=== PATIENT | female | born 1960 | race Caucasian/White ===

== ENCOUNTER 2017-07-01 17:20 | Observation (INO) | payer SELFPAY ==
[2017-07-01 18:00] LABS: #Basophils 0.1 thou/uL (0.0-0.2); #Eosinphils 0.2 thou/uL (0.0-0.7); #Lymphocytes 2.9 thou/uL (1.20-3.40); #Monocytes 0.5 thou/uL (0.11-0.59); #Neutrophils 4.5 thou/uL (1.40-6.50); %Basophils 1.5 % (0.0-1.0); %Eosinophils 2.2 % (0.0-10.0); %Monocytes 6.6 % (0.0-10.0); Hematocrit 42.2 % (36.0-47.0); Mean Platelet Volume 8.9 fL (7.4-10.4); Red Blood Cell (RBC) Count 4.41 mill/uL (4.20-5.40); White Blood Cell (WBC) Count 8.2 thou/uL (4.8-10.8)
[2017-07-01 18:12] LABS: ALT (SGPT) 19 U/L (8-55); AST (SGOT) 20 U/L (5-34); Alkaline Phosphatase 107 U/L (40-150); Anion Gap 16 mmol/L (10-20); BUN (Urea Nitrogen) 6 mg/dL (9.8-20.1); Bilirubin, Total 0.3 mg/dL (0.2-1.2); CK (CPK) 62 U/L (29-168); Calc. Creatinine Clearance 0 mL/min (70-130); Carbon Dioxide 24 mmol/L (22-29); Chloride 98 mmol/L (98-107); Estimated GFR-MDRD Greater than 90; Globulin 3.1 g/dL (2.4-3.5); Protein, Total 7.4 g/dL (6.0-8.3)
[2017-07-01 18:13] LABS: Troponin I Less than 0.010 ng/mL (< 0.028)
[2017-07-01] MEDS ORDERED: Nitroglycerin 2% Ointment 1 INCH/1 GM Packet ONE (18:28)
--- NOTE | 2017-07-01 18:38 | RAD ---
CHEST TWO VIEW 07/01/17 HISTORY: Emergency exam. COMPARISON: None. FINDINGS: Lungs are clear. No pneumothorax or effusion. The cardiac silhouette and mediastinal contours are w ithin normal limits. IMPRESSION: No acute intrathoracic abnormality. POS: MICKH
[2017-07-01 21:11] VITALS: BMI 25.3
[2017-07-01 21:49] LABS: Troponin I Less than 0.010 ng/mL (< 0.028)
[2017-07-01] MEDS ORDERED: hydrALAZINE 20 MG/ML VIAL SLOW IVP PRN (23:24)
[2017-07-01] MEDS: Nitroglycerin 2% Ointment 1 INCH/1 GM Packet TOP SCH (23:32)
[2017-07-02 00:09] LABS: Troponin I Less than 0.010 ng/mL (< 0.028)
[2017-07-02 04:32] LABS: #Basophils 0.1 thou/uL (0.0-0.2); #Eosinphils 0.2 thou/uL (0.0-0.7); #Lymphocytes 2.8 thou/uL (1.20-3.40); #Monocytes 0.6 thou/uL (0.11-0.59); #Neutrophils 4.1 thou/uL (1.40-6.50); %Basophils 0.9 % (0.0-1.0); %Eosinophils 2.9 % (0.0-10.0); %Lymphocytes 35.8 % (21.0-51.0); %Monocytes 7.6 % (0.0-10.0); Hematocrit 39.7 % (36.0-47.0); Mean Platelet Volume 8.1 fL (7.4-10.4); Red Blood Cell (RBC) Count 4.05 mill/uL (4.20-5.40); White Blood Cell (WBC) Count 7.7 thou/uL (4.8-10.8)
[2017-07-02 04:35] LABS: Anion Gap 10 mmol/L (10-20); BUN (Urea Nitrogen) 10 mg/dL (9.8-20.1); Calc. Creatinine Clearance 105 mL/min (70-130); Calcium 9.3 mg/dL (7.8-10.44); Carbon Dioxide 27 mmol/L (22-29); Chloride 103 mmol/L (98-107); Estimated GFR-MDRD Greater than 90; Magnesium 2.1 mg/dL (1.6-2.6); Phosphorus 3.3 mg/dL (2.3-4.7)
[2017-07-02 04:54] VITALS: TEMP 98.1
--- NOTE | 2017-07-02 06:57 | HP-2 ---
CODE STATUS: FULL. PRIMARY CARE PHYSICIAN: Sera russell. ATTENDING: Dr. Joseph. PGY-1: Dr. Calixto. CHIEF COMPLAINT: Chest pain. HISTORY OF PRESENT ILLNESS: This is a 56-year-old female who presents with a 1 day history of substernal chest pain. She states she has had breast pain in her right side for 3 weeks and is being followed as an outpatient for that. She said that the pain changed today and it was in the center of her chest. She notes no nausea, vomiting or diarrhea. She denies diaphoresis, radiation of the pain or change in pain. She does note that nitro that she got helped the pain. She has no other complaints at this time. PAST MEDICAL HISTORY: Significant for hypertension. PAST SURGICAL HISTORY: Significant for hysterectomy. ALLERGIES: None. MEDICATIONS: Lisinopril/HCTZ 10/12.5 mg. FAMILY HISTORY: Noncontributory. SOCIAL HISTORY: She does admit to an [id number] history and currently smoking half a pack per day. Denies any alcohol or drug use. REVIEW OF SYSTEMS: General: She denies any fevers, chills, weight changes, night sweats, or fatigue. Eyes: Denies any vision change or eye pain. ENT: She does admit to nasal congestion. Denies any rhinorrhea or sore throat. Respiratory: She admits to cough and congestion. No shortness of breath. Cardiovascular: She does admit to chest pain. She denies any palpitations, edema, orthopnea. Gastrointestinal: Denies any nausea, vomiting, diarrhea, constipation, abdominal pain, gastrointestinal bleeding. Genitourinary: She denies any incontinence, dysuria. Skin: She denies any rashes, lesions, jaundice, itching. She does admit to breast pain on her right. Musculoskeletal : She denies any pain, tenderness, stiffness, or swelling. Neurologic: She denies any weakness, numbness, syncope or seizures. Psychiatric: She denies anxiety or depression. PHYSICAL EXAMINATION: VITAL SIGNS: Blood pressure is 181/84, pulse 76, respiration 16, temperature max 98.8, pulse ox 98% on room air, current weight 63 kilograms. GENERAL: She is alert and oriented x4. Appropriately interactive. EYES: PERRLA. Conjunctivae within normal limits. ENT: Nasal mucosa and oropharynx within normal limits. NECK: Supple, no lymphadenopathy, no thyromegaly, no bruit. CARDIOVASCULAR: Regular rate and rhythm, no murmurs, no gallops. Radial and pedal pulses equal bilaterally. RESPIRATORY: Normal effort, no retractions. She does have wheezing present bilaterally. SKIN: Warm and dry. No cyanosis. No lesions. ABDOMEN: Soft. No tenderness to palpation. Bowel sounds are present x4. No masses or distention. EXTREMITIES: No clubbing, cyanosis or edema. MUSCULOSKELETAL: Structure, tone, muscle strength and range of motion are within normal limits. NEUROLOGIC: No focal neurologic deficits. Sensation within normal limits. Cranial nerves II through XII grossly intact. GCS was 15. PSYCHIATRIC: She was appropriate. LABORATORY DATA: White blood cell count 8.2, platelet count 266, hemoglobin 14.3, hematocrit 42.2. CK of 62, CK-MB 0.9. Sodium 134, potassium 4.0, chloride 98, bicarbonate 24, BUN 6, creatinine 0.66, glucose 107. Troponins were less than 0.01 x2. Calcium was 10.0, total protein 7.4, albumin 4.3, total bilirubin 0.3, AST 20, ALT 19, alkaline phosphatase 107. D-dimer 0.37. X-RAY FINDINGS: Chest x-ray showed nothing acute. ASSESSMENT AND PLAN: A 56-year-old female with past medical history of hypertension who presents with: 1. Atypical chest pain. We will trend her troponins, we will get EKG, repeat stress test in the a.m., BNP, TSH, magnesium, and phosphatase. We will give her nitro, ASA. She had a heart score of 4. 2. Hypertension. Continue her home medications, likely need an increase in her dosage. 3. Tobacco abuse. She was counseled on quitting. 4. Breast pain. We will recommend outpatient follow up from there. Already has Mammogram order in place. Disposition and length of hospital stay will be observation in 1 midnight. Symptomatic medications will be provided. History and physical exam as well as management has been discussed with Dr. Joseph. SHANTE
--- NOTE | 2017-07-02 07:34 | PDOC.FM ---
- Subjective Subjective: Denies any chest pain or SOB. Still reporting pain in R. breast. Pain being controlled. Denies any acute events overnight. no fevers or chills. Denies any other problems at this time. - Objective MAR Reviewed: Yes Vital Signs & Weight: Vital Signs (12 hours) Temp Pulse Resp BP Pulse Ox 07/02/17 04:11 98.1 F 60 18 115/65 95 07/01/17 23:02 121/69 07/01/17 22:57 99 07/01/17 21:14 98.8 F 76 16 07/01/17 20:34 98.8 F 76 16 181/84 H 99 Weight Weight 62.868 kg I&O: 07/01/17 07/02/17 07/03/17 06:59 06:59 06:59 Intake Total 200 Output Total 350 Balance -150 Result Diagrams: 07/02/17 04:15 07/02/17 04:15 Radiology Reviewed by me: Yes (No acute intrathoracic abnormality ) <Can Carlos - Last Filed: 07/02/17 07:32> - Objective Vital Signs & Weight: Vital Signs (12 hours) Temp Pulse Resp BP BP Pulse Ox 07/02/17 07:51 98.1 F 60 18 07/02/17 07:41 98.6 F 68 16 136/71 97 07/02/17 04:11 98.1 F 60 18 115/65 95 07/01/17 23:02 121/69 07/01/17 22:57 99 Weight Weight 62.868 kg I&O: 07/01/17 07/02/17 07/03/17 06:59 06:59 06:59 Intake Total 200 Output Total 350 Balance -150 Result Diagrams: 07/02/17 04:15 07/02/17 04:15 <Mikel Joseph - Last Filed: 07/02/17 10:49> Phys Exam - Physical Examination HEENT: PERRLA, moist MMs Neck: no nodes, supple, full ROM Respiratory: no wheezing, no rales, no rhonchi, clear to auscultation bilateral Cardiovascular: RRR, no significant murmur, no rub Gastrointestinal: soft, non-tender, no distention, positive bowel sounds Musculoskeletal: no edema, pulses present Lymphatic: no nodes Psychiatric: normal affect, A&O x 3 Skin: no rash, normal turgor <Can Carlos - Last Filed: 07/02/17 07:32> Dx/Plan (1) Atypical chest pain Code(s): R07.89 - OTHER CHEST PAIN Status: Acute (2) Hypertension Code(s): I10 - ESSENTIAL (PRIMARY) HYPERTENSION Status: Acute (3) Tobacco abuse Code(s): Z72.0 - TOBACCO USE Status: Acute (4) Breast pain Status: Acute - Plan Plan: Atypical Chest Pain -Troponins trended x3 are negative. -TSH negative -EKG shows no acute changes -Will get a stress test this morning. NPO at midnight HTN -BP stable this morning -Continue home meds -Will continue to monitor Tobacco abuse -counseled on quitting Breast Pain -No breast abnormality noted on exam -Has mammogram [facility] outpatient -Recommend outpatient follow up. <Can Carlos - Last Filed: 07/02/17 07:32> Attending Addendum - Attending Addendum I personally evaluated the patient and discussed the management with Dr. Carlos. I agree with the History, Examination, Assessment and Plan documented above with any addition or exceptions noted below. Patient with atypical chest pain and family history of early CAD presented for workup. She has negative enzymes and had normal exercise stress test. She will discharged today with outpatient follow up for further risk factor modification to decrease her risk of CAD. Sterling symptoms related to pleuritic pain and MSK pain as she has cough for last few days. <Mikel Joseph - Last Filed: 07/02/17 10:49>
--- NOTE | 2017-07-02 07:36 | PDOC.EVN ---
Attending Addendum - Attending Addendum I personally evaluated the patient and discussed the management with Dr. Calixto. I agree with the History, Examination, Assessment and Plan documented in his H& P with any addition or exceptions noted below. Patient with atypical chest pain and family history of CAD and cardiac admitted to obs for further cardiac evaluation. Will trend trops, risk stratify , and stress in AM.
[2017-07-02 08:16] VITALS: BP 136/71
[2017-07-02] MEDS ORDERED: Lisinopril/Hydrochlorothiazide 10 mg/12.5 mg Tablet PO SCH (09:00)
[2017-07-02] MEDS ORDERED: FLU VACC QS2017-18 36 mo. & older 0.5 ML SYRINGE IM ONE (09:00)
[2017-07-02] MEDS ORDERED: Aspirin 325 MG TAB PO SCH (09:00)
--- NOTE | 2017-07-03 13:55 | DIS-2 ---
DATE OF ADMISSION: 07/01/2017 DATE OF DISCHARGE: 07/02/2017 CONSULTS: None. PROCEDURE: An exercise stress test, which was normal. PRIMARY DISCHARGE DIAGNOSES: 1. Atypical chest pain. 2. Breast pain. SECONDARY DIAGNOSES: Hypertension and tobacco abuse. DISCHARGE MEDICATIONS: Lisinopril/hydrochlorothiazide 10 mg/12.5 mg 1 tab daily. HISTORY OF PRESENT ILLNESS AND BRIEF HOSPITAL COURSE: This is a 56-year-old female who had a 1 day h istory of substernal chest pain. States she has had breast pain in the right side for 3 weeks and mehta s a mammogram and ultrasound scheduled for that. She also reports having cold and cough for the last week and says she has been coughing a lot. Denies any nausea, vomiting or diarrhea. At the time wh en she came in, she got a nitro and said it helped with the chest pain. Pain was likely either due t o pleuritic chest pain from coughing and possibly cardiac. At this time, admitted to tele. No abnor mality was seen on the EKG. We got an exercise stress test the next day, which was read as normal. We trended her troponins and yhey were negative x2, less than 0.01. Her BNP was normal without a fas ting lipid panel in which LDL was 118, HDL was 64, and her heart disease risk rtdio was 1.2. We chec ked her thyroid, which was normal . After stress test was normal, nothing showed up on the hear t monitor. We talked to patient and patient agreed that likely pain was due to coughing. She did mehta ve pain to tenderness when we palpated the chest as well, so at this time we will discharge to home. DISPOSITION: Stable. DISCHARGE INSTRUCTIONS: 1. Location: Home. 2. Activities: Activity as tolerated. 3. Diet: Regular diet. 4. Followup: We will have her schedule followup appointment with her primary care doctor and have a hospital visit in 2 weeks.
--- NOTE | 2017-07-04 07:35 | EKG ---
Test Reason : ROUTINE Blood Pressure : / mmHG Vent. Rate : 070 BPM Atrial Rate : 070 BPM P-R Int : 162 ms QRS Dur : 094 ms QT Int : 400 ms P-R-T Axes : 046 079 053 degrees QTc Int : 432 ms Normal sinus rhythm Normal ECG No previous ECGs available Confirmed by HUGO POWERS, DR. Arana ([id number]) on 07/04/2017 7:35:13 AM Referred By: LITA Confirmed By:DR. Sumit ARIAS MD
== END 2017-07-02 11:10 | disposition home or self-care (01) ==
LOC: SCSER 17:20 → 2SW 20:12
PROVIDERS: ADMIT Student in an Organized Health Care Education/Training Program; ATTEND Student in an Organized Health Care Education/Training Program
DX: R07.2 Precordial pain (principal); N64.4 Mastodynia; I10 Essential (primary) hypertension; F17.210 Nicotine dependence, cigarettes, uncomplicated; Z79.899 Other long term (current) drug therapy; Z90.710 Acquired absence of both cervix and uterus
CPT/HCPCS: 36415; 71020; 80048; 80053; 80061; 82553; 83735; 83880; 84100; 84443; 84484; 85025; 85379; 90471; 90682; 90732; 93005; 93010; 93017; 94760; 99406; G0008; G0009; G0378; Q2036